=== PATIENT | female | born 1950 | race Caucasian/White ===

== ENCOUNTER 2019-12-25 07:11 | Emergency (ER) | payer BC, MEDICAID ==
[~2019-12-25] VITALS: Ht 157.5 cm; Wt 66.0 kg
[2019-12-25] MEDS ORDERED: PREDNISONE 20MG TABLET PO STA (11:27)
[2019-12-25] MEDS ORDERED: ASPIRIN 81MG TABLET PO ONE (11:30)
[2019-12-25] MEDS ORDERED: DIPHENHYDRAMINE 50MG CAPSULE PO ONE (11:30)
[2019-12-25 12:11] LABS: BASOPHILS % 0.2 % (0.0-2.0); EOSINOPHILS % 1.6 % (0.0-5.0); HEMATOCRIT. 40.8 % (36.0-48.0); HEMOGLOBIN. 13.5 g/dL (12.0-16.0); LYMPHOCYTES % 16.4 % (20.0-50.0); MEAN CORPUSCULAR HEMOGLOBIN 30.7 pg (28.0-32.0); MEAN CORPUSCULAR VOLUME 92.7 fL (81.0-99.0); MONOCYTES % 7.7 % (2.0-8.0); NEUTROPHILS % 74.1 % (40.0-76.0); PLATELET 175 x1000/uL (130-400); RED CELL DISTRIBUTION WIDTH 13.8 % (11.6-14.6)
[2019-12-25 12:19] LABS: CHLORIDE 108 mEq/L (98-107)
[2019-12-25 13:33] VITALS: BP 132/74
== END 2019-12-25 13:41 | disposition home or self-care (01) ==
LOC: ER 07:11 → CANBEDREQ 14:47
DX: R07.9 Chest pain, unspecified (principal); T78.40XA Allergy, unspecified, initial encounter; I10 Essential (primary) hypertension; X58.XXXA Exposure to other specified factors, initial encounter
CPT/HCPCS: 36415; 71045; 80053; 83880; 84484; 85025; 93005; 99284; J7512; Q0163